=== PATIENT | female | born 1970 | race Hispanic/Latino ===

== ENCOUNTER 2017-03-21 15:36 | Emergency (ER) | payer MEDICAID ==
[2017-03-21 15:37] VITALS: BMI 26.6
[2017-03-21 16:05] VITALS: RESP 18; TEMP 98.3
--- NOTE | 2017-03-21 16:38 | C.PDOC ---
History Of Present Illness The patient, a 46 y/o female, presents to the ED for evaluation of sinus congestion associated with yellow-green mucus which began around 2 weeks ago. Patient also reports her chest often feels heavy and she has difficultly breathing when performing exertional activities. Patient notes she was recently diagnosed with Asthma and has been using nebulizer treatment at home. Patient states she has been compliant with her medication. Otherwise, she denies fever, chills. Time Seen by Provider: 03/21/17 16:15 Chief Complaint (Nursing): Cough, Cold, Congestion History Per: Patient History/Exam Limitations: no limitations Onset/Duration Of Symptoms: Other (around 2 weeks ) Current Symptoms Are (Timing): Still Present Associated Symptoms: Nasal Congestion. denies: Fever, Chills Ear Symptoms: Bilateral: None Additional History Per: Patient Past Medical History Reviewed: Historical Data, Nursing Documentation, Vital Signs Vital Signs: Last Vital Signs Temp 98.3 F 03/21/17 16:01 Pulse 97 H 03/21/17 16:01 Resp 18 03/21/17 16:01 BP 148/94 H 03/21/17 16:01 Pulse Ox 100 03/21/17 17:13 - Medical History PMH: Asthma, Bronchitis, Fractures (left humerus), HTN Surgical History: No Surg Hx - [facility] Procedures ANESTH INJECT SYMP NERVE (01/28/14) ANESTH INJECT-SPIN CANAL (05/01/14) INJECT STEROID (05/01/14) INJECT/INFUSE NEC (03/04/14) INJECTION INTO JOINT (03/04/14) LUMBOSAC SPINE X-RAY NEC (05/01/14) OPEN REDUCT-INT FIX TOE (07/24/14) SKEL XRAY-PELVIS/HIP NEC (03/04/14) SPINAL CANAL INJECT NEC (05/01/14) SYMPATH NERVE INJECT NEC (01/28/14) Family History: States: Unknown Family Hx - Social History Hx Tobacco Use: No Hx Alcohol Use: Yes Hx Substance Use: No - Immunization History Hx Tetanus Toxoid Vaccination: Yes Hx Influenza Vaccination: No Hx Pneumococcal Vaccination: No Review Of Systems Except As Marked, All Systems Reviewed And Found Negative. Constitutional: Negative for: Fever, Chills ENT: Positive for: Other (+sinus congestion ) Respiratory: Positive for: Other (+yellow-green mucus ) Physical Exam - Physical Exam Appears: Non-toxic, No Acute Distress Skin: Normal Color, Warm, Dry Head: Atraumatic, Normacephalic, Other (+sinus congestion ) Eye(s): bilateral: Normal Inspection Ear(s): Bilateral: Normal Nose: Normal, No Discharge Oral Mucosa: Moist Throat: Normal, No Erythema, No Exudate Neck: Normal ROM, Supple Chest: Symmetrical, No Deformity, No Tenderness Cardiovascular: Rhythm Regular, No Murmur Respiratory: No Rales, No Rhonchi, No Wheezing, Other (+bronchial sounds bilaterally. (-)tachypnea ) Back: Normal Inspection, No Vertebral Tenderness, No Paraspinal Tenderness Extremity: Normal ROM, Capillary Refill (less than 2 seconds ) Neurological/Psych: Oriented x3, Normal Speech, Normal Cognition Gait: Steady ED Course And Treatment O2 Sat by Pulse Oximetry: 100 (on RA) Pulse Ox Interpretation: Normal - Radiology CXR: Interpreted by Me, Viewed By Me, Read By Radiologist CXR Interpretation: Yes: No Acute Disease, Other (unchanged from prior ) Progress Note: Patient has Peak Expiratory Flow Rate of 350 during physical exam. CXR ordered and reviewed. Patient refuses prednisone treatment at this time. Irina received Albuterol IH and Sudafed PO. Progress - Data Reviewed Data Reviewed: Diagnostic imaging, Old records Disposition Counseled Patient/Family Regarding: Diagnosis, Need For Followup, Rx Given - Disposition Referrals: YOUR,PMD [Other] Disposition: HOME/ ROUTINE Disposition Time: 17:51 Condition: IMPROVED Prescriptions: Amoxicillin/Clavulanate [Augmentin 500 MG-125 MG] 1 tab PO TID #30 tab predniSONE [Prednisone] 60 mg PO DAILY #12 tab Instructions: Sinusitis (ED) - Clinical Impression Clinical Impression: Sinusitis, Asthma exacerbation - Scribe Statement The provider has reviewed the documentation as recorded by the Scribe (Kiki Walker) Provider Attestation: All medical record entries made by the Scribe were at my direction and personally dictated by me. I have reviewed the chart and agree that the record accurately reflects my personal performance of the history, physical exam, medical decision making, and the department course for this patient. I have also personally directed, reviewed, and agree with the discharge instructions and disposition.
[2017-03-21] MEDS: Albuterol-Ipratrop 3 mg / 0.5 (3 ml) UD IH SCH ×3 (16:45→17:15)
[2017-03-21] MEDS ORDERED: Albuterol-Ipratrop 3 mg / 0.5 (3 ml) UD ONE ×2 (16:49→17:25)
--- NOTE | 2017-03-21 16:49 | RAD ---
HISTORY: COUGH, ASTHMA COMPARISON: Comparison chest 01/04/2017 TECHNIQUE: Chest PA and lateral FINDINGS: LUNGS: No focal consolidation. The interstitial markings are slightly increased and coarsened with a few scattered peribronchial cuffing changes; rule out sequela of mild reactive/inflammatory airway disease. PLEURA: No significant pleural effusion identified. No pneumothorax apparent. CARDIOVASCULAR: Normal. OSSEOUS STRUCTURES: No significant abnormalities. VISUALIZED UPPER ABDOMEN: Normal. OTHER FINDINGS: None. IMPRESSION: No focal consolidation. The interstitial markings are slightly increased and coarsened with a few scattered peribronchial cuffing changes; rule out sequela of mild reactive/inflammatory airway disease.
[2017-03-21 18:01] VITALS: BP 135/84; PULSE 100; O2SAT 98
[2017-03-21 18:01] LABS: BASO % 0.1 % (0.0-2.0); EOS # 0.2 K/uL (0.0-0.7); EOS % 1.5 % (0.0-4.0); HEMATOCRIT 36.8 % (34.0-47.0); LYMPH # 4.5 K/uL (1.0-4.3); LYMPH % 43.7 % (20.0-40.0); MEAN CELL VOLUME 88.3 fL (81.0-99.0); MEAN CORPUSCULAR HEMOGLOBIN 29.6 pg (27.0-31.0); MEAN CORPUSCULAR HGB CONC 33.5 g/dL (33.0-37.0); MEAN PLATELET VOLUME 8.7 fL (7.2-11.7); MONO # 0.8 K/uL (0.0-0.8); MONO % 7.8 % (0.0-10.0); RED CELL DISTRIBUTION WIDTH 13.6 % (11.5-14.5); WHITE BLOOD COUNT 10.4 K/uL (4.8-10.8)
== END 2017-03-21 18:01 | disposition home or self-care (01) ==
LOC: C.ER 15:36
DX: J32.9 Chronic sinusitis, unspecified (principal); J45.901 Unspecified asthma with (acute) exacerbation

== ENCOUNTER 2017-05-01 21:29 | Emergency (ER) | payer MEDICAID ==
[2017-05-01 21:29] VITALS: BMI 26.6
[2017-05-01 21:59] VITALS: BP 138/89; PULSE 100; RESP 18; TEMP 97.8; O2SAT 100
[2017-05-01] MEDS ORDERED: DiphenhydrAMINE 50 mg/ml Inj IM STA (22:26)
--- NOTE | 2017-05-01 22:27 | C.PDOC ---
History Of Present Illness pt c/o rash to anterior chest and neck that started a few days after taking clindamycin for a dental implant (around jarred 9). pt stopped clindamycin after 4 days; took a few tabs of prednisone left at home and rash resolved, but returned a week later, to chest wall,neck, face. pt took another 2 days of prednisone, rash resolved, then returned again. no fever or chills, denies any difficulty breathing, swallowing or swelling to lips, mouth or tongue. Time Seen by Provider: 05/01/17 21:59 Chief Complaint (Nursing): Abnormal Skin Integrity History Per: Patient History/Exam Limitations: no limitations Onset/Duration Of Symptoms: Days (14), Intermittent Episodes Quality Of Symptoms: Itching Severity: Moderate Past Medical History Reviewed: Historical Data, Nursing Documentation, Vital Signs Vital Signs: Last Vital Signs Temp 97.8 F 05/01/17 21:57 Pulse 100 H 05/01/17 21:57 Resp 18 05/01/17 21:57 BP 138/89 05/01/17 21:57 Pulse Ox 100 05/01/17 23:01 - Medical History PMH: Asthma, Bronchitis, Fractures (left humerus), HTN Surgical History: No Surg Hx - [facility] Procedures ANESTH INJECT SYMP NERVE (01/28/14) ANESTH INJECT-SPIN CANAL (05/01/14) INJECT STEROID (05/01/14) INJECT/INFUSE NEC (03/04/14) INJECTION INTO JOINT (03/04/14) LUMBOSAC SPINE X-RAY NEC (05/01/14) OPEN REDUCT-INT FIX TOE (07/24/14) SKEL XRAY-PELVIS/HIP NEC (03/04/14) SPINAL CANAL INJECT NEC (05/01/14) SYMPATH NERVE INJECT NEC (01/28/14) Family History: States: Unknown Family Hx - Social History Hx Tobacco Use: No Hx Alcohol Use: Yes Hx Substance Use: No - Immunization History Hx Tetanus Toxoid Vaccination: Yes Hx Influenza Vaccination: No Hx Pneumococcal Vaccination: No Review Of Systems Constitutional: Negative for: Fever, Chills Cardiovascular: Negative for: Chest Pain, Palpitations Respiratory: Negative for: Cough, Shortness of Breath Gastrointestinal: Negative for: Nausea, Vomiting, Abdominal Pain Skin: Positive for: Rash Neurological: Negative for: Weakness, Numbness Physical Exam - Physical Exam Appears: Non-toxic, No Acute Distress Skin: Normal Color, Warm, Dry, Rash (rash to bilateral face and neck and anterior chest wall, mild erythematous base to neck and face, with scattered small pusules of 1-2 mm or less, mild warmth to left side face,no swelling ) Head: Atraumatic, Normacephalic Nose: Normal Oral Mucosa: Moist Tongue: Normal Appearing, No Swelling, No Lesions Lips: Normal Appearing, No Swelling Gingiva: Normal Appearing Throat: Normal, No Erythema, No Drooling, No Mass Chest: Symmetrical, No Tenderness Cardiovascular: Rhythm Regular, No Murmur Respiratory: Normal Breath Sounds, No Accessory Muscle Use, No Rales, No Rhonchi , No Stridor, No Wheezing Neurological/Psych: Oriented x3, Normal Speech, Normal Cognition ED Course And Treatment O2 Sat by Pulse Oximetry: 100 Medical Decision Making Medical Decision Makin46 y/o female with intermittent rash after taking clindamycin. will treat for allergic reaction with f/u md and derm. Disposition Counseled Patient/Family Regarding: Diagnosis, Need For Followup, Rx Given - Disposition Referrals: Genevieve Rosado MD [Staff Provider] - Disposition: HOME/ ROUTINE Disposition Time: 22:57 Condition: STABLE Additional Instructions: Take medication as prescribed. Do not take flovent while taking steroids. Take Leyla on Sun, but switch to Benadryl 25 mg by mouth every 6 hours on and Sun. FOllow up ben Rosado on Sunday as scheduled and recommend dermatology consult if rash not resolving. Return to ER for any worsening symptoms. Prescriptions: DiphenhydrAMINE [Benadryl] 25 mg PO Q6 #30 cap Famotidine [Pepcid] 20 mg PO DAILY #14 tab predniSONE [predniSONE Tab] 40 mg PO DAILY #10 tab Instructions: Acute Rash (ED) Forms: General Discharge Instructions, Work Excuse - Clinical Impression Clinical Impression: Rash and nonspecific skin eruption
[2017-05-01] MEDS ORDERED: DiphenhydrAMINE 50 mg/ml Inj ONE (22:42)
== END 2017-05-01 23:13 | disposition home or self-care (01) ==
LOC: C.ER 21:29
DX: R21 Rash and other nonspecific skin eruption (principal)
CPT/HCPCS: 96372; 99283; J1200

== ENCOUNTER 2017-06-11 14:31 | Emergency (ER) | payer MEDICAID ==
[2017-06-11 14:31] VITALS: BMI 26.6
[2017-06-11 14:39] VITALS: BP 144/102; PULSE 93; RESP 20; TEMP 98.1; O2SAT 97
--- NOTE | 2017-06-11 16:02 | C.PDOC ---
History Of Present Illness 46 y/o female presents to ED with complaints of mild blurry vision for a "few weeks". Patient states she has taken various otc eye drops for vague symptom with no improvement. Patient state she has an eye infection or eye allergies. Patient denies trauma, fever, chills, headache or any other complaints at this time. Time Seen by Provider: 06/11/17 15:09 Chief Complaint (Nursing): Dizziness/Lightheaded History Per: Patient History/Exam Limitations: no limitations Onset/Duration Of Symptoms: Days Current Symptoms Are (Timing): Still Present Past Medical History Reviewed: Historical Data, Nursing Documentation, Vital Signs Vital Signs: Last Vital Signs Temp 98.1 F 06/11/17 14:38 Pulse 93 H 06/11/17 14:38 Resp 20 06/11/17 14:38 BP 144/102 H 06/11/17 14:38 Pulse Ox 97 06/11/17 16:02 - Medical History PMH: Asthma, Bronchitis, Fractures (left humerus), HTN - [facility] Procedures ANESTH INJECT SYMP NERVE (01/28/14) ANESTH INJECT-SPIN CANAL (05/01/14) INJECT STEROID (05/01/14) INJECT/INFUSE NEC (03/04/14) INJECTION INTO JOINT (03/04/14) LUMBOSAC SPINE X-RAY NEC (05/01/14) OPEN REDUCT-INT FIX TOE (07/24/14) SKEL XRAY-PELVIS/HIP NEC (03/04/14) SPINAL CANAL INJECT NEC (05/01/14) SYMPATH NERVE INJECT NEC (01/28/14) Family History: States: Unknown Family Hx - Social History Hx Tobacco Use: No Hx Alcohol Use: Yes Hx Substance Use: No - Immunization History Hx Tetanus Toxoid Vaccination: Yes Hx Influenza Vaccination: No Hx Pneumococcal Vaccination: No Review Of Systems Except As Marked, All Systems Reviewed And Found Negative. Constitutional: Negative for: Fever, Chills Eyes: Positive for: Vision Change Gastrointestinal: Negative for: Nausea, Vomiting, Diarrhea Neurological: Negative for: Headache Physical Exam - Physical Exam Appears: Non-toxic, No Acute Distress Skin: Normal Color, Warm Head: Atraumatic, Normacephalic Eye(s): bilateral: Normal Inspection, EOMI Ear(s): Bilateral: Other (Exudated ear canals, pt states she cleans with Q-tip and states she sleeps with ear plugs) Oral Mucosa: Moist Throat: Normal, No Erythema Cardiovascular: Rhythm Regular, No Murmur Respiratory: Normal Breath Sounds, No Rales, No Rhonchi, No Wheezing Gastrointestinal/Abdominal: Soft, No Tenderness, No Guarding, No Rebound Gait: Steady ED Course And Treatment O2 Sat by Pulse Oximetry: 97 (RA) Pulse Ox Interpretation: Normal Medical Decision Making Medical Decision Making: normal eval myriad of symptoms neg eval consider viral syndrome recent neg w/u with Cardio AND Pulm d/c to outpatient f/u. Disposition Doctor Will See Patient In The: Office Counseled Patient/Family Regarding: Studies Performed, Diagnosis - Disposition Referrals: [facility] [Outside] [facility] [Outside] [facility] [Outside] Disposition: HOME/ ROUTINE Disposition Time: 16:02 Condition: GOOD Additional Instructions: cut back on eye drops without infection nor allergy symtoms Follow-up in our Clinic as needed Instructions: Viral Syndrome (ED), Dizziness (ED) Forms: [employer] (Mongolian) - Clinical Impression Clinical Impression: Dizziness - Scribe Statement The provider has reviewed the documentation as recorded by the Scribe Donato Garcia All medical record entries made by the Mikeibindra were at my direction and personally dictated by me. I have reviewed the chart and agree that the record accurately reflects my personal performance of the history, physical exam, medical decision making, and the department course for this patient. I have also personally directed, reviewed, and agree with the discharge instructions and disposition.
--- NOTE | 2017-06-12 19:18 | CARD ---
APPROVED REPORT EKG Measurement Heart [id number] <Conclusion> Normal sinus rhythm Normal ECG
== END 2017-06-11 16:11 | disposition home or self-care (01) ==
LOC: C.ER 14:31
DX: B34.9 Viral infection, unspecified (principal)

== ENCOUNTER 2018-05-31 20:00 | Emergency (ER) | payer MEDICAID ==
[2018-05-31 20:00] VITALS: BMI 26.6
[2018-05-31 20:08] VITALS: TEMP 98
[2018-05-31] MEDS ORDERED: Lactated Ringer's 1,000 ML IVB STA (20:39)
[2018-05-31 20:57] LABS: BASO # 0.1 K/uL (0.0-0.2); BASO % 1.3 % (0.0-2.0); EOS # 0.1 K/uL (0.0-0.7); EOS % 2.1 % (0.0-4.0); HEMOGLOBIN 12.3 g/dL (11.0-16.0); LYMPH # 2.4 K/uL (1.0-4.3); LYMPH % 34.2 % (20.0-40.0); MEAN CELL VOLUME 87.3 fL (81.0-99.0); MEAN CORPUSCULAR HEMOGLOBIN 30.2 pg (27.0-31.0); MEAN CORPUSCULAR HGB CONC 34.6 g/dL (33.0-37.0); MEAN PLATELET VOLUME 8.7 fL (7.2-11.7); MONO # 0.7 K/uL (0.0-0.8); MONO % 10.4 % (0.0-10.0); NEUT # 3.7 K/uL (1.8-7.0); NRBC % 0.1 % (0.0-2.0); RBC 4.08 Mil/uL (3.80-5.20); RED CELL DISTRIBUTION WIDTH 13.9 % (11.5-14.5); WHITE BLOOD COUNT 7.1 K/uL (4.8-10.8)
[2018-05-31 21:11] LABS: ALB/GLOB RATIO 1.3 (1.0-2.1); ALBUMIN 3.8 g/dL (3.5-5.0); ALT/SGPT 26 U/L (9-52); AST/SGOT 14 U/L (14-36); BLOOD UREA NITROGEN 16 mg/dL (7-17); CALCIUM 8.9 mg/dl (8.6-10.4); GFR AFRICAN-AMERICAN > 60; GFR NON-AFRICAN AMERICAN > 60; LIPASE 761 U/L (23-300)
[2018-05-31 21:34] LABS: HCG,QUALITATIVE URINE NEGATIVE (NEGATIVE)
[2018-05-31 21:35] LABS: SQUAMOUS EPITHIAL 2 /hpf (0-5); URINE AMORPHOUS SEDIMENT RARE /ul (<OCC); URINE BACTERIA RARE (<OCC); URINE BILIRUBIN NEGATIVE (NEGATIVE); URINE BLOOD NEGATIVE (NEGATIVE); URINE CLARITY Hazy (Clear); URINE COLOR Yellow (YELLOW); URINE GLUCOSE (UA) NORMAL (Normal); URINE LEUKOCYTE ESTERASE NEG Leu/uL (Negative); URINE PROTEIN NEGATIVE (NEGATIVE); URINE UROBILINOGEN NORMAL mg/dL (0.2-1.0)
[2018-05-31] MEDS ORDERED: Iodixanol 320 MG/ML 100 ML BOTTLE IV ONE (22:14)
--- NOTE | 2018-05-31 23:27 | C.PDOC ---
Time Seen by Provider: 05/31/18 20:19 Chief Complaint (Nursing): Dizziness/Lightheaded History Per: Patient Onset/Duration Of Symptoms: Days Current Symptoms Are (Timing): Still Present Associated Symptoms Preceding Syncopal Episode: Lightheadedness Fall Associated With With Symptoms: No Severity: Moderate Additional History Per: Prior Records - Symptoms Of CVA Recent Head Trauma: No Past Medical History Reviewed: Historical Data, Nursing Documentation, Vital Signs Vital Signs: Last Vital Signs Temp 98 F 05/31/18 20:01 Pulse 75 05/31/18 20:01 Resp 20 05/31/18 20:01 BP 142/87 05/31/18 20:01 Pulse Ox 98 05/31/18 20:01 - Medical History PMH: Asthma, Bronchitis, Fractures (left humerus), HTN, Multiple Sclerosis - [facility] Procedures ANESTH INJECT SYMP NERVE (01/28/14) ANESTH INJECT-SPIN CANAL (05/01/14) INJECT STEROID (05/01/14) INJECT/INFUSE NEC (03/04/14) INJECTION INTO JOINT (03/04/14) LUMBOSAC SPINE X-RAY NEC (05/01/14) OPEN REDUCT-INT FIX TOE (07/24/14) SKEL XRAY-PELVIS/HIP NEC (03/04/14) SPINAL CANAL INJECT NEC (05/01/14) SYMPATH NERVE INJECT NEC (01/28/14) Family History: States: Unknown Family Hx - Social History Hx Tobacco Use: No Hx Alcohol Use: No Hx Substance Use: No - Immunization History Hx Tetanus Toxoid Vaccination: Yes Hx Influenza Vaccination: Yes Hx Pneumococcal Vaccination: No Review Of Systems Except As Marked, All Systems Reviewed And Found Negative. Constitutional: Positive for: Malaise. Negative for: Fever Cardiovascular: Negative for: Chest Pain Respiratory: Negative for: Shortness of Breath Gastrointestinal: Positive for: Nausea, Vomiting, Abdominal Pain, Diarrhea. Negative for: Melena, Hematochezia, Hematemesis Neurological: Positive for: Dizziness. Negative for: Weakness, Numbness Physical Exam - Physical Exam Appears: Non-toxic, No Acute Distress Skin: Normal Color, Warm, Dry, No Rash Head: Atraumatic, Normacephalic Eye(s): bilateral: PERRL, EOMI Neck: Normal ROM, Supple Cardiovascular: Rhythm Regular Respiratory: Normal Breath Sounds, No Accessory Muscle Use Gastrointestinal/Abdominal: Soft, Tenderness (mild epigastric), No Distention, No Guarding, No Rebound Back: No CVA Tenderness Extremity: Normal ROM Neurological/Psych: Oriented x3, Normal Speech, Normal Cognition, No Cerebellar Signs, Normal Motor, Normal Sensation ED Course And Treatment - Laboratory Results Result Diagrams: 05/31/18 20:54 05/31/18 20:54 Interpretation Of Abnormal: Elevated Lipase level O2 Sat by Pulse Oximetry: 98 Pulse Ox Interpretation: Normal - CT Scan/US CT abd/pelv Other Rad Studies (CT/US): Read By Radiologist, Radiology Report Reviewed CT/US Interpretation: IMPRESSION: 1. No definite CT evidence of pancreatitis or associated complications. Correlate with. amylase/lipase levels. 2. Possible mild enteritis. Clinical correlation is needed. 3. Possible breast lesion. Followup as clinically warranted. 4. Incidental/non-acute findings are described above. Progress Note: Pt feels much better and wants to go home. Pt states that her last mammogram was 6 months ago and that the lesion on right breast is a marker that was placed there. Out of her medications, Meloxicam has a listed possible adverse reaction of pancreatitis. Pt was instructed to discontinue it. Reassessment Condition: Improved Progress - Interventions Interventions:: Observation, Intravenous fluid - Medications Administered Intravenous: Antiemetic, Other (PPI) - Data Reviewed Data Reviewed: Lab, Diagnostic imaging, Old records - Patient Status Patient status: Mostly improved - Continuity of Care Discussed patient case with:: Patient, ED Nurse - Patient Plan Patient Plan: Discharge, F/U with PCP Disposition Counseled Patient/Family Regarding: Studies Performed, Diagnosis, Need For Followup, Rx Given - Disposition Referrals: Marcel Mustafa MD [Medical Doctor] - Disposition: HOME/ ROUTINE Disposition Time: 23:30 Condition: IMPROVED Additional Instructions: Drink plenty of fluids. Avoid alcohol. Follow up with your doctor within 1 week for further evaluation and treatment. Return to the ER if you develop fever, not tolerating fluids, worsening of symptoms or if you have any other concerns. Prescriptions: Metoclopramide [Reglan] 1 tab PO TID PRN #15 tab PRN Reason: Nausea/Vomiting Pantoprazole Sodium [Protonix] 40 mg PO DAILY #14 ect Instructions: Gastritis (DC) - Clinical Impression Clinical Impression: Dizziness, Nausea & vomiting, Upper abdominal pain
[2018-05-31 23:58] VITALS: BP 132/65; PULSE 77; RESP 16; O2SAT 100
--- NOTE | 2018-06-01 12:28 | CT ---
Date of service: 05/31/2018 PROCEDURE: CT Abdomen and Pelvis with contrast HISTORY: Epigastric pain, elevated lipase. Pancreatitis? COMPARISON: Abdomen pelvis CT with contrast 05/31/2016. TECHNIQUE: Following the intravenous administration of iodinated contrast material, a CT examination of the abdomen and pelvis performed from the domes of the diaphragms to the symphysis pubis with reformatted datasets provided in axial, sagittal and coronal planes. Oral contrast was not administered as per referring physician request. Contrast dose: Visipaque 320, 100 cc Radiation dose: Total exam DLP = 1958.82 mGy-cm. This CT exam was performed using one or more of the following dose reduction techniques: Automated exposure control, adjustment of the mA and/or kV according to patient size, and/or use of iterative reconstruction technique. FINDINGS: LOWER THORAX: Unremarkable. LIVER: Diffuse hepatic steatosis is noted without intrahepatic biliary dilatation or demonstrated mass noted in the interval. GALLBLADDER AND BILE DUCTS: Unremarkable. PANCREAS: Unremarkable. No gross lesion or ductal dilatation. SPLEEN: Unremarkable. ADRENALS: Unremarkable. No mass. KIDNEYS AND URETERS: Unremarkable. No hydronephrosis. No solid mass. VASCULATURE: Unremarkable. No aortic aneurysm. BOWEL: Unremarkable. No obstruction. No gross mural thickening. APPENDIX: Normal appendix. PERITONEUM: Unremarkable. No free fluid. No free air. LYMPH NODES: Unremarkable. No enlarged lymph nodes. BLADDER: Unremarkable. REPRODUCTIVE: Unremarkable. BONES: No acute fracture. OTHER FINDINGS: Right breast calcific density with related soft tissue unchanged compared prior abdomen and pelvis CT 05/31/2016. IMPRESSION: Unremarkable contrast enhanced CT of the abdomen and pelvis, including evaluation of the pancreas. Lack of oral contrast limits evaluation of the bowel. Further clinical correlation is advised and follow-up CT can be performed as clinically indicated. Concordant preliminary report from [facility], 05/31/2016.
== END 2018-05-31 23:57 | disposition home or self-care (01) ==
LOC: C.ER 20:00
DX: R42 Dizziness and giddiness (principal); R11.2 Nausea with vomiting, unspecified; R10.13 Epigastric pain
CPT/HCPCS: 74177; 80053; 81001; 83690; 83735; 84703; 85025; 96374; 96375; 99285; C9113; J2765; J7120; Q9967

== ENCOUNTER 2018-12-04 14:12 | Outpatient (CLI) | payer MEDICAID | END 2018-12-04 14:13 | disposition home or self-care (01) | LOC: C.CARD 14:12 ==

== ENCOUNTER 2018-12-13 14:08 | Outpatient (CLI) | payer MEDICAID | END 2018-12-13 14:09 | disposition home or self-care (01) | LOC: C.CARD 14:09 ==